=== PATIENT | male | born 1995 | race African-American/Black ===

== ENCOUNTER 2021-05-03 10:18 | Emergency (ER) | payer SELFPAY ==
[~2021-05-03] VITALS: Ht 182.9 cm; Wt 61.2 kg
[2021-05-03 10:25] VITALS: BP 134/69
[2021-05-03] MEDS ORDERED: KETOROLAC 15 MG/ML VIAL IM ONE (12:15)
[2021-05-03] MEDS ORDERED: IBUP-2213 PO (13:44)
[2021-05-03] MEDS ORDERED: KETOROLAC 30 MG/ML VIAL ONE (13:49)
--- NOTE | 2021-05-03 13:58 | NUR ---
25 Y/O MALE C/O RT SIDED FLANK/LOWER BACK PAIN X3 DAYS. PT REPORTS PAIN 7/10 BURNING PAIN THAT RADIATES TO HIS STOMACH. PT DENIES URINARY SYMPTOMS. DENIES FEVER/CHILLS. PT REPORTS THAT HE WAS CONSTIPATED X2-3 DAYS BUT JUST HAD BM WHILE WAITING IN THE LOBBY THAT HELPED WITH THE PAIN. PT REPORTS THAT HE RECENTLY JUST GOT OUT OF [facility] AND RAN OUT OF [facility] AND IS REQUESTING FOR LISINOPRIL PRESCRIPTION. PT A/O X4 WITH EVEN AND UNLABORED RESPIRATIONS MEDHX: [facility] NKA
--- NOTE | 2021-05-03 14:03 | NUR ---
Patient discharged with v/s stable. Written and verbal after care instructions ABOUT ACUTE BACK PAIN given and explained. Patient alert, oriented and verbalized understanding of instructions. Ambulatory with steady gait. All questions addressed prior to discharge. ID band removed. Patient advised to follow up with PMD. Rx of MOTRIN given. Patient educated on indication of medication including possible reaction and side effects. Opportunity to ask questions provided and answered.
== END 2021-05-03 14:03 | disposition home or self-care (01) ==
LOC: MED 10:18
DX: M54.50 Low back pain, unspecified (principal); Z79.899 Other long term (current) drug therapy
CPT/HCPCS: 81002; 96372; 99283; J1885